=== PATIENT | female | born 1990 | race Caucasian/White ===

== ENCOUNTER 2018-12-09 08:44 | Emergency (ER) | payer OTHER ==
[2018-12-09 09:32] VITALS: BP 122/63
--- NOTE | 2018-12-09 09:39 | ED ---
GI/ HPI - HPI Summary HPI Summary: Patient is a 28-year-old female presenting to the ED with a right labial small abscess which began yesterday. She states she has had a bartholin gland cyst turned abscess in April 2018 which needed to be surgically drained from her OB/ [facility] [facility] in [facility]. She states she has not had issues since that time. She was also not placed on antibiotics at the time. She endorses a small amount of pain to the right inside of the labia without erythema. States she feels a small mass, much smaller than the previous one in April. Denies any urinary symptoms, nausea, vomiting, diarrhea or constipation. Denies fevers, sweats, or chills. Pain only with palpation of the area. - History of Current Complaint Chief Complaint: EDUrogenitalProblems Time Seen by Provider: 12/09/18 09:05 Stated Complaint: PELVIC PAIN Hx Obtained From: Patient Onset/Duration: Started Hours Ago Timing: Constant Severity: Moderate Current Severity: Moderate Pain Intensity: 6 Additional Signs & Symptoms: Positive: Genital Swelling - R sided bartholin gland cyst - Risk Factors GI Bleed Risk Factor(s): Negative Spontaneous AB Risk Factor(s): Negative Placental Abruption Risk Factor(s): Negative Ectopic Risk Factor(s): Negative Ovarian Torsion Risk Factor(s): Negative - Allergy/Home Medications Allergies/Adverse Reactions: Allergies Allergy/AdvReac Type Severity Reaction Status Date / Time No Known Allergies Allergy Verified 12/09/18 08:53 PMH/Surg Hx/FS Hx/Imm Hx Previously Healthy: Yes - Immunization History Hx Pertussis Vaccination: No Immunizations Up to Date: Yes Infectious Disease History: No Infectious Disease History: Denies: Traveled Outside the in Last 30 Days - Social History Occupation: Student Lives: Alone Alcohol Use: Occasionally Hx Substance Use: No Substance Use Type: Reports: None Smoking Status (MU): Never Smoked Tobacco Review of Systems Negative: Fever, Chills, Fatigue, Skin Diaphoresis Negative: Palpitations, Chest Pain Negative: Shortness Of Breath, Cough Negative: Abdominal Pain, Vomiting, Diarrhea, Nausea Genitourinary: Negative Positive: no symptoms reported, see HPI, other - Rt labial bartholin gland cyst Skin: Negative Neurological: Negative All Other Systems Reviewed And Are Negative: Yes Physical Exam Vital Signs On Initial Exam: Initial Vitals Temp Pulse Resp BP Pulse Ox 98.5 F 53 20 132/76 99 12/09/18 08:52 12/09/18 08:52 12/09/18 08:52 12/09/18 08:52 12/09/18 08:52 Diagnostics - Vital Signs Vital Signs Temp Pulse Resp BP Pulse Ox 12/09/18 09:31 98.2 F 50 16 122/63 97 12/09/18 08:52 98.5 F 53 20 132/76 99 - Laboratory Lab Statement: Any lab studies that have been ordered have been reviewed, and results considered in the medical decision making process. GIGU Course/Dx - Course Course Of Treatment: During the course of treatment, the patient's evaluated for a Bartholin's cyst vs Bartholin abscess. She states she's had a previous right-sided Bartholin's cyst 8 o'clock which turned into abscess and required surgical drainage. She states this is much smaller is on physical examination, the bartholin gland is palpated and slightly enlarged which appears to be a cyst. no surrounding erythema. Cyst located at 8 o'clock to the R inside of the labia and measures .6cm. No evidence for need for surgical drainage and patient prefers to start with abx. She will follow up with OBGYN if symptoms persist. She states she has an OBGYN which she will follow up with this week. Due to her hx of cyst turned abscess, bactrim twice daily x 7 days given as rx. - Diagnoses Differential Diagnoses - Female: Other - bartholin gland infection, asbcess, labial abscess, labial swelling Provider Diagnoses: Bartholin gland cyst Discharge - Sign-Out/Discharge Documenting (check all that apply): Patient Departure - Discharge Plan Condition: Stable Disposition: HOME Prescriptions: Sulfamethox/Trimethoprim DS* [Bactrim DS 800/160 TAB*] 1 tab PO BID #[id number] tab MDD 2 Referrals: [facility] - Saroj PEREZ [Primary Care Provider] - Additional Instructions: Please follow up with OBGYN - call tomorrow for an appt If you develop any fevers, sweats or chills - return to the ED immediately Bactrim twice daily x 7 days If this becomes larger, you will need to be reseen - Billing Disposition and Condition Condition: STABLE Disposition: Home Images - Images Perineum Female: 1 - .6cm bartholin gland cyst (does not appear to be infected)
== END 2018-12-09 09:31 | disposition home or self-care (01) ==
LOC: ED 08:44
DX: N75.0 Cyst of Bartholin's gland (principal)
CPT/HCPCS: 99282